=== PATIENT | female | born 1960 | race Caucasian/White ===

== ENCOUNTER → 2017-07-13 | Outpatient (CLI) | payer OTHER ==
[~2017-07-13] MED LIST: ADVIL200 MG PO; EFFEXOR XR150 MG PO; EFFEXOR75 MG; EFFEXOR75 MG PO; KEFLEX500 MG PO; PROTONIX40 MG PO; VERAPAMIL HCL240 MG PO; VERELAN 240 MG240 MG PO
== END | disposition home or self-care (01) ==
LOC: CDC 15:14
DX: Z01.810 Encounter for preprocedural cardiovascular examination (principal); M79.9 Soft tissue disorder, unspecified
CPT/HCPCS: 93000

== ENCOUNTER 2017-07-18 09:25 | Day surgery (SDC) | payer OTHER ==
[~2017-07-18] VITALS: Ht 167.6 cm; Wt 90.7 kg
[2017-07-18 09:55] VITALS: BP 158/77
[2017-07-18 12:56] VITALS: BP 135/76
[2017-07-18 13:31] VITALS: BP 140/67
== END 2017-07-18 13:39 | disposition home or self-care (01) ==
LOC: SDC
PROC: 0JB70ZZ Excision of Back Subcutaneous Tissue and Fascia, Open Approach (ICD-10-PCS; principal; 2017-07-18)
DX: D17.1 Benign lipomatous neoplasm of skin and subcutaneous tissue of trunk (principal); I10 Essential (primary) hypertension; K21.9 Gastro-esophageal reflux disease without esophagitis; Z88.2 Allergy status to sulfonamides
CPT/HCPCS: 88304; J1885; J2250; J2405; J3010

== ENCOUNTER 2017-11-18 19:42 | Emergency (ER) | payer OTHER ==
[~2017-11-18] VITALS: Ht 167.6 cm; Wt 90.9 kg
[2017-11-18] MEDS ORDERED: MOTRIN800 MG PO (23:36)
[2017-11-18] MEDS ORDERED: NORCO 7.5/321 TABLET PO (23:36)
[2017-11-18] MEDS ORDERED: CIPRO500 MG PO (23:36)
[2017-11-19 00:13] VITALS: BP 151/108
== END 2017-11-19 00:14 | disposition home or self-care (01) ==
LOC: EME 19:42 → EXP 19:42
PROC: 0HQMXZZ Repair Right Foot Skin, External Approach (ICD-10-PCS; principal; 2017-11-18)
DX: S91.311A Laceration without foreign body, right foot, initial encounter (principal); W22.8XXA Striking against or struck by other objects, initial encounter; Z88.2 Allergy status to sulfonamides; Z87.891 Personal history of nicotine dependence
CPT/HCPCS: 73630; 99281; 99284; J0690